=== PATIENT | male | born 1975 | race Caucasian/White ===

== ENCOUNTER 2021-05-04 10:08 | Emergency (ER) | payer OTHER ==
[~2021-05-04] VITALS: Ht 182.9 cm; Wt 94.5 kg
[2021-05-04] MEDS ORDERED: ASPIRIN CHEWABLE 81 MG TABLET. PO ONE (10:45)
--- NOTE | 2021-05-04 10:51 | PHYS DOC ---
Past History Past Surgical History: No Surgical History (PILO CALVERT APRN) Alcohol Use: Occasionally (PILO CALVERT APRN) General Adult EDM: Chief Complaint: SHORTNESS OF BREATH HPI: HPI: Patient is a 40-year-old male who presents to the ER via EMS for right upper chest pain and shortness of breath that started today. Patient reports that his pain is located in the right upper area of his chest below his clavicle. He describes the pain as a stabbing pain and reports that it is intermittent. He is not currently having pain. He is anxious appearing and is reporting shortness of breath. He was seen at his primary care provider's office for these complaints prior to ER arrival and he reports that he was given an anxiety medication but is unsure what it was called and a nitro tablet. He reports after the nitro tablet he no longer was having chest pain. He denies any alleviating or aggravating factors. The pain does not radiate. Patient is also reporting fatigue. Patient reports a positive sick exposure. He is vaccinated for COVID-19. He has no medical history but has a family history of [place]. Patient denies cough, fevers, nausea, vomiting, abdominal. EMS reports that patient's blood sugar upon arrival was 64 and they gave him some glucose and recheck was 74. Patient is not a diabetic. Patient appears to be in no acute distress, nonlabored breathing, vital signs stable, afebrile. (PILO CALVERT APRN) Review of Systems: Review of Systems: 14 body systems of the review of systems have been reviewed. See HPI for pertinent positive and negative responses, otherwise all other systems are negative, nonpertinent or noncontributory (PILO CALVERT APRN) Current Medications: Current Meds: Current Medications Medications (Trade) Dose Ordered Sig/Anitra Start Time Stop Time Status Last Admin Dose Admin Aspirin (Aspirin Chewable) 324 mg 1X ONCE 05/04/21 10:45 05/04/21 10:46 DC (PILO CALVERT APRN) Allergies: Allergies: Allergies Coded Allergies Type Severity Reaction Last Updated Verified No Known Drug Allergies 05/04/21 No (PILO CALVERT APRN) Physical Exam: PE: Constitutional: Well developed, well nourished, no acute distress, non-toxic appearance, anxious appearing. [] HENT: Normocephalic, atraumatic Eyes: PERRLA, EOMI, conjunctiva normal, no discharge. [] Neck: Normal range of motion, no stridor Cardiovascular:Heart rate regular rhythm, no murmur, chest pain is not reproducible [] Lungs & Thorax: Bilateral breath sounds clear to auscultation [] Abdomen: Bowel sounds normal, soft, no tenderness, no masses, no pulsatile masses. [] Skin: Warm, dry, no erythema, no rash. [] Back: Normal range of motion Extremities: No tenderness, no cyanosis, no clubbing, ROM intact, no edema. [] Neurologic: Alert and oriented X 3, normal motor function, normal sensory function, no focal deficits noted. [] Psychologic: Affect normal, judgement normal, mood normal. [] (PILO CALVERT APRN) Current Patient Data: Labs: Laboratory Tests Test 05/04/21 11:05 White Blood Count 6.1 x10^3/uL Red Blood Count 5.23 x10^6/uL Hemoglobin 16.5 g/dL Hematocrit 47.3 % Mean Corpuscular Volume 90 fL Mean Corpuscular Hemoglobin 31 pg Mean Corpuscular Hemoglobin Concent 35 g/dL Red Cell Distribution Width 13.8 % Platelet Count 194 x10^3/uL Neutrophils (%) (Auto) 63 % Lymphocytes (%) (Auto) 28 % Monocytes (%) (Auto) 7 % Eosinophils (%) (Auto) 2 % Basophils (%) (Auto) 1 % Neutrophils # (Auto) 3.9 x10^3uL Lymphocytes # (Auto) 1.7 x10^3/uL Monocytes # (Auto) 0.4 x10^3/uL Eosinophils # (Auto) 0.1 x10^3/uL Basophils # (Auto) 0.0 x10^3/uL D-Dimer (Izabel) < 0.19 mg/L Sodium Level 143 mmol/L Potassium Level 3.6 mmol/L Chloride Level 105 mmol/L Carbon Dioxide Level 31 mmol/L Anion Gap 7 Blood Urea Nitrogen 18 mg/dL Creatinine 1.1 mg/dL Estimated GFR (Cockcroft-Gault) 71.8 BUN/Creatinine Ratio 16 Glucose Level 122 mg/dL Calcium Level 8.7 mg/dL Total Bilirubin 0.4 mg/dL Aspartate Amino Transf (AST/SGOT) 17 U/L Alanine Aminotransferase (ALT/SGPT) 26 U/L Alkaline Phosphatase 97 U/L Troponin I Quantitative < 0.017 ng/mL Total Protein 7.4 g/dL Albumin 3.9 g/dL Albumin/Globulin Ratio 1.1 Current Medications Medications (Trade) Dose Ordered Sig/Anitra Route PRN Reason Start Time Stop Time Status Last Admin Dose Admin Aspirin (Aspirin Chewable) 324 mg 1X ONCE PO 05/04/21 10:45 05/04/21 10:46 DC 05/04/21 10:51 Albuterol/ Ipratropium (Duoneb) 3 ml 1X ONCE NEB 05/04/21 12:45 05/04/21 12:46 Vital Signs: Vital Signs Date Time Temp Pulse Resp B/P (MAP) Pulse Ox O2 Delivery O2 Flow Rate FiO2 05/04/21 10:18 98.4 68 24 148/61 98 Room Air (PILO CALVERT APRN) EKG: EKG: EKG performed at 1140 shows sinus rhythm, no STEMI as read by Dr. Wood at 146. [] (PILO CALVERT APRN) Radiology/Procedures: Radiology/Procedures: PROCEDURE: CHEST AP ONLY INDICATION: Reason: chest pain, soa / Spl. Instructions: / History: COMPARISON: None. FINDINGS: Frontal view of chest obtained. Disorganized pulmonary markings bilaterally with hyperexpansion. No definite focal airspace consolidation. Cardiac silhouette upper limits of normal in size IMPRESSION: * Hyperexpansion of the lungs. Would correlate for possible causes such as asthma or emphysema. * No definite focal consolidation. Electronically signed by: Mulu Valdez MD (05/04/2021 10:58 AM) DESKTOP- [id number] DICTATED AND SIGNED BY: MULU VALDEZ MD DATE: 05/04/21 1055 CC: EMERGENCY,DEPARTMENT; PILO CALVERT APRN; PCP,NO ~MTH0 0 [] (PILO CALVERT APRN) Heart Score: C/O Chest Pain: Yes HEART Score for Chest Pain: HEART Score for Chest Pain Response (Comments) Value History Moderately Suspicious 1 ECG Normal 0 Age < 45 0 Risk Factors 1 or 2 Risk Factors 1 Troponin < Normal Limit 0 Total 2 Risk Factors: Risk Factors: DM, Current or recent (<one month) smoker, HTN, HLP, family history of CAD, obesity. Risk Scores: Score 0 - 3: 2.5% MACE over next 6 weeks - Discharge Home Score 4 - 6: 20.3% MACE over next 6 weeks - Admit for Clinical Observation Score 7 - 10: 72.7% MACE over next 6 weeks - Early Invasive Strategies (PILO CALVERT APRN) Course & Med Decision Making: Course & Med Decision Making Pertinent Labs and Imaging studies reviewed. (See chart for details) Patient is a 40-year-old male being seen in the ER for chest pain and shortness of breath. Work-up in the ER consisted of blood work, EKG, and chest x-ray. Although patient is not tachycardic he is very anxious appearing D-dimer performed to rule out PE. Patient was not having chest pain in the ER and was given a nitroglycerin tablet at his primary care provider's office. Patient given aspirin. Heart score is 2. Work-up in the ER is unremarkable. Patient continues to be pain-free. Patient treated with a breathing treatment due to possible asthma. Patient tested for COVID-19 in the ER and will be notified of those results when they become available. I discussed with patient all findings and diagnostic testing as well as the need to follow-up with PCP for further evaluation and treatment or return to the ER if any new or worsening symptoms. Strict return precautions were also discussed at length. Patient voiced understanding and agreement with the plan. Patient is hemodynamically stable at the time of disposition. (PILO CALVERT APRN) Dragon Disclaimer: Dragon Disclaimer: This electronic medical record was generated, in whole or in part, using a voice recognition dictation system. (PILO CALVERT APRN) Attending Co-Sign The patient was seen and interviewed as well as examined at the bedside. The chart was reviewed. The case was discussed. Agree with the plan of care. (ZOE WOOD DO) Departure Departure: Impression: Primary Impression: Chest pain Qualified Codes: R07.9 - Chest pain, unspecified Disposition: HOME / SELF CARE / HOMELESS Condition: GOOD Referrals: PCP,NO (PCP) Patient Instructions: Chest Pain (Nonspecific) Additional Instructions: You were seen in the ER for chest pain and shortness of breath. Your work-up in the ER was unremarkable, your physical exam was reassuring and your vital signs were stable. You were given an aspirin in the ER and a breathing treatment. We tested you for COVID-19. You will be notified of your results when they become available in approximately 2 days. Please self isolate until you receive these results. Please follow-up with your primary care provider tomorrow regarding your ER visit. As we discussed, at this time you are not having cardiac event. If you develop worsening of your chest pain, shortness of breath, lightheadedness, palpitations, fevers refractory to treatment, nausea, vomiting please return to the ER. EMERGENCY DEPARTMENT GENERAL DISCHARGE INSTRUCTIONS Thank you for coming to [facility] (ED) today and trusting us with you care. We trust that you had a positivie experience in our Emergency Department. If you wish to speak to the department management, you may call the director at [phone]. YOUR FOLLOW UP INSTRUCTIONS ARE FOLLOWS: 1. Do you have a private Doctor? If you do not have a private doctor, please ask for a resource list of physicians or clinics that may be able to assist you with follow up care. 2. The Emergency Physician has interpreted your x-rays. The X-Ray specialist will also review them. If there is a change in the findings, you will be notified in 48 hours when at all possible. 3. A lab test or culture has been done, your results will be reviewed and you will be notified if you need a change in treatment. ADDITIONAL INSTRUCTIONS AND INFORMATION: 1. Your care today has been supervised by a physician who is specially trained in emergency care. Many problems require more than one evaluation for a complete diagnosis and treatment. We recommend that you schedule your follow up appointment as recommended to ensure complete treatment of you illness or injury. If you are unable to obtain follow up care and continue to have a problem, or if your condition worsens, we recommend that you return to the ED. 2. We are not able to safely determine your condition over the phone nor are we able to give sound medical advice over the phone. For these safety reasons, if you call for medical advice we will ask you to come to the ED for further evaluation. 3. If you have any questions regarding these discharge instructions please call the ED at [phone]. SAFETY INFORMATION: In the interest of safety, wellness, and injury prevention; we encourage you to wear your sealbelt, if you smoke; quite smoking, and we encourage family to use a protective helmet for bicycling and other sporting events that present an increased risk for head injury. IF YOUR SYMPTOMS WORSEN OR NEW SYMPTOMS DEVELOP, OR YOU HAVE CONCERNS ABOUT YOUR CONDITION; OR IF YOUR CONDITION WORSENS WHILE YOU ARE WAITING FOR YOUR FOLLOW UP APPOINTMENT; EITHER CONTACT YOUR PRIMARY CARE DOCTOR, THE PHYSICIAN WHOSE NAME AND NUMBER YOU WERE GIVEN, OR RETURN TO THE ED IMMEDIATELY. PILO CALVERT APRN May 04, 2021 10:51 ZOE WOOD DO May 05, 2021 06:13
--- NOTE | 2021-05-04 11:00 | RAD ---
INDICATION: Reason: chest pain, soa / Spl. Instructions: / History: COMPARISON: None. FINDINGS: Frontal view of chest obtained. Disorganized pulmonary markings bilaterally with hyperexpansion. No definite focal airspace consolidation. Cardiac silhouette upper limits of normal in size IMPRESSION: * Hyperexpansion of the lungs. Would correlate for possible causes such as asthma or emphysema. * No definite focal consolidation. Electronically signed by: Guillermo Davenport MD (05/04/2021 10:58 AM) DESKTOP-[id number]
[2021-05-04 11:33] LABS: BASO % 1 % (0-3); EOS # 0.1 x10^3/uL (0.0-0.7); EOS % 2 % (0-3); HEMATOCRIT 47.3 % (39.0-53.0); HEMOGLOBIN 16.5 g/dL (13.0-17.5); LYMPH # 1.7 x10^3/uL (1.0-4.8); LYMPH % 28 % (24-48); MEAN CORPUSCULAR HEMOGLOBIN 31 pg (25-35); MEAN CORPUSCULAR HGB CONC 35 g/dL (31-37); MEAN CORPUSCULAR VOLUME 90 fL (79-100); MONO # 0.4 x10^3/uL (0.0-1.1); MONO % 7 % (0-9); NEUT # 3.9 x10^3uL (1.8-7.7); NEUT % 63 % (31-73); PLATELET COUNT 194 x10^3/uL (140-400); RED BLOOD COUNT 5.23 x10^6/uL (4.30-5.70); RED CELL DISTRIBUTION WIDTH 13.8 % (11.5-14.5); WHITE BLOOD COUNT 6.1 x10^3/uL (4.0-11.0)
[2021-05-04 11:40] LABS: CALCIUM 8.7 mg/dL (8.5-10.1); CREATININE 1.1 mg/dL (0.7-1.3); GFR 71.8; POTASSIUM 3.6 mmol/L (3.5-5.1)
[2021-05-04 11:46] LABS: ALBUMIN 3.9 g/dL (3.4-5.0); ALBUMIN/GLOBULIN RATIO 1.1 (1.0-1.7); TOTAL BILIRUBIN 0.4 mg/dL (0.2-1.0); TOTAL PROTEIN 7.4 g/dL (6.4-8.2)
--- NOTE | 2021-05-04 11:54 | EKG ---
[address] [address] Test Date: 2021-05-04 Test Time: 11:40:18 Pat Name: PHOENIX GONZALEZ Department: Room: Gender: M Deputy General Counsel: TIMUR : 1980-06-13 Requested By: PILO CALVERT Order Number: [id number] Reading MD: Measurements Intervals [place] Rate: 57 P: 52 FL: 152 QRS: 54 QRSD: 84 T: 39 QT: 418 QTc: 410 Interpretive Statements SINUS RHYTHM NORMAL ECG RI6.02 No previous ECG available for comparison
[2021-05-04 12:45] VITALS: BP 120/79
[2021-05-04] MEDS ORDERED: IPRATRPIUM/ALBUTEROL 0.5/2.5MG 3 ML NEBU. NEB ONE (12:45)
== END 2021-05-04 13:12 | disposition home or self-care (01) ==
LOC: EDBD 10:08 → ER 10:08
DX: R07.89 Other chest pain (principal); Z20.822 Contact with and (suspected) exposure to COVID-19
CPT/HCPCS: 71045; 80053; 82947; 84484; 85025; 85379; 93005; 94640; 99285; C9803; U0003